=== PATIENT | female | born 1985 | race Hispanic/Latino ===

== ENCOUNTER 2018-11-10 06:15 | Inpatient (IN) | payer OTHER ==
[2018-11-10] MEDS ORDERED: LACTATED RINGERS 2,000 ML ONE (07:24)
[2018-11-10] MEDS ORDERED: PITOCin/NS 20 UNIT/1000ML DRIP 20,000 MILLIUNITS/1,000 ML BAG IV ONE (07:24)
[2018-11-10] MEDS ORDERED: PEPCID IV ONE ×2 (07:25→07:39)
[2018-11-10] MEDS ORDERED: ANCEF/STERILE WATER 2 GM/20 ML 2 GM/20 ML SYRINGE IV ONE (07:25)
[2018-11-10] MEDS ORDERED: REGLAN ONE (07:26)
[2018-11-10] MEDS ORDERED: BICITRA ONE (07:27)
[2018-11-10] MEDS ORDERED: REGLAN IV ONE (07:39)
[2018-11-10] MEDS ORDERED: BICITRA PO ONE ×2 (07:39→08:30)
[2018-11-10 07:57] LABS: Basophils % (Auto) 0.5 % (0.0-1.8); Eosinophils # (Auto) 0.1 K/mm3 (0.0-0.4); Eosinophils % (Auto) 1.1 % (0.0-4.3); Hematocrit 33.8 % (30.3-42.9); Hemoglobin 11.5 gm/dl (10.1-14.3); Lymphocytes # (Auto) 1.4 K/mm3 (1.2-5.4); Lymphocytes % (Auto) 15.8 % (13.4-35.0); Mean Corpuscular HGB Conc 34 % (30-34); Mean Corpuscular Volume 97 fl (79-97); Monocytes # (Auto) 0.5 K/mm3 (0.0-0.8); Monocytes % (Auto) 5.1 % (0.0-7.3); Red Blood Count 3.47 M/mm3 (3.65-5.03); Red Cell Distribution Width 14.2 % (13.2-15.2)
--- NOTE | 2018-11-10 07:58 | Anesthesia Consultation ---
Anesthesia Consult and Med Hx - Airway Anesthetic Teeth Evaluation: Poor, Chipped Mallampati Class: Class II Intubation Access Assessment: Probably Good - Pulmonary Exam CTA: Yes - Cardiac Exam Cardiac Exam: RRR - Pre-Operative Health Status ASA Pre-Surgery Classification: ASA2 Proposed Anesthetic Plan: Spinal - Pulmonary Hx Smoking: Yes (smoked day of surgery) Hx Asthma: No - Cardiovascular System Hx Hypertension: No - Central Nervous System Hx Seizures: Yes (post coming down after high- last 2016) Hx Psychiatric Problems: No - Endocrine Hx Renal Disease: No Hx Hypothyroidism: No Hx Hyperthyroidism: No - Hematic Hx Anemia: No Hx Sickle Cell Disease: No - Other Systems Hx Alcohol Use: No Hx Substance Use: Yes (H/0 substance abuse pt says she has been clean for over a year) Hx Obesity: Yes (BMI 39)
--- NOTE | 2018-11-10 07:59 | Anesthesia Day of Surgery ---
Anesthesia Day of Surgery - Day of Surgery Patient Examined: Yes Patient H&P Reviewed: Yes Patient is NPO: Yes Beta Blockers: No Gordon's Test: N/A
[2018-11-10] MEDS ORDERED: ANCEF/STERILE WATER 2 GM/20 ML 2 GM/20 ML SYRINGE IV NR (08:00)
[2018-11-10] MEDS ORDERED: PITOCin/NS 20 UNIT/1000ML DRIP 20 UNITS/1,000 ML BAG IV SCH ×3 (08:00→11:00)
[2018-11-10] MEDS ORDERED: LACTATED RINGERS 1,000 ML IV SCH ×2 (08:00→09:00)
--- NOTE | 2018-11-10 08:06 | History and Physical Report ---
History of Present Illness Date of examination: 11/10/18 Date of admission: 11/10/18 06:15 Chief complaint: scheduled repeat csec History of present illness: This is a 33 yo EDC 11/15/18 at 39+2 weeks here for scheduled repeat csec with hx of previous x2. 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 Hx of resolved placenta previa. HX of ascus and hpv+. Past History Past Medical History: other (hx of ptd) Past Surgical History: section [employer] History: abnormal PAP smear (ascus), herpes Family/Genetic History: cancer (breast), other (asthma, liver disorder) - Obstetrical History Expected Date of Delivery: 10/15/18 Actual Gestation: 43 Week(s) 5 Day(s) : 3 Para: 2 Hx # Term Pregnancies: 1 Number of Pregnancies: 1 Spontaneous Abortions: 0 Induced : 0 Number of Living Children: 2 Medications and Allergies Allergies Allergy/AdvReac Type Severity Reaction Status Date / Time No Known Allergies Allergy Unverified 11/10/18 07:38 Active Meds: Active Medications Cefazolin Sodium (Ancef/Sterile Water 2 Gm/20 Ml) 2 gm in 20 mls @ 80 mls/hr IV PREOP NR; Protocol Stop: 11/10/18 20:00 Oxytocin/Sodium Chloride (Pitocin/Ns 20 Unit/1000ml Drip) 20 units in 1,000 mls @ 0 mls/hr IV TITR CHAYO Lactated Ringer's (Lactated Ringers) 1,000 mls @ 2,250 mls/hr IV PREOP CHAYO Stop: 11/11/18 09:27 Review of Systems All systems: negative - Physical Exam Breasts: Positive: normal Cardiovascular: Regular rate, Normal S1 Lungs: Positive: Clear to auscultation, Normal air movement Abdomen: Positive: normal appearance, soft, normal bowel sounds. Negative: distention, tenderness, guarding Genitourinary (Female): Positive: normal external genitalia, normal perenium Vulva: both: normal Vagina: Positive: normal moisture Uterus: Positive: normal size, enlarged Adnexa: both: normal Anus/Rectum: Positive: normal perianal skin Extremities: Positive: normal Deep Tendon Reflex Grade: Normal +2 - Obstetrical FHR: category 1 Results Result Diagrams: 11/10/18 07:30 Abnormal lab results 11/10/18 Range/Units 07:30 RBC 3.47 L (3.65-5.03) M/mm3 MCH 33 H (28-32) pg Seg Neutrophils % 77.5 H (40.0-70.0) % All other labs normal. Assessment and Plan A/P IUP 39 + weeks here for repeat csec Previosu hx of csec x2 scheduled repeat discussed r/b/a of csec which include but not limited to bleedin, infection, damage to pelvic and non pelvic organs risk of hysterectomy, blood, clots, and pain. Patient verbalized acceptance and desires to proceed.
[2018-11-10] MEDS ORDERED: SUBLIMAZE ONE (08:10)
[2018-11-10 08:37] LABS: Platelet Count 225 K/mm3 (140-440)
[2018-11-10] MEDS ORDERED: NACL 0.9% 1000 ML 1,000 ML ONE (08:56)
[2018-11-10] MEDS ORDERED: PEPCID IV NR (09:00)
[2018-11-10] MEDS ORDERED: REGLAN IV NR (09:00)
[2018-11-10] MEDS ORDERED: WATER FOR IRRIG STERILE IR ONE (09:15)
[2018-11-10] MEDS ORDERED: NACL 0.9% IR ONE (09:15)
[2018-11-10] MEDS ORDERED: METHERGINE IM ONE (09:35)
[2018-11-10] MEDS ORDERED: ZOFRAN ONE (09:41)
[2018-11-10] MEDS ORDERED: BENADRYL ONE (10:01)
--- NOTE | 2018-11-10 10:14 | Post Anesthesia Evaluation ---
- Post Anesthesia Evaluation Patient Participated: Yes Airway Patent: Yes Stable Respiratory Function: Yes Nausea/Vomiting: No Temp > 96.8F: Yes Adequeate Hydration: Yes Anesthesia Complications: No Block Receding Appropriately: Yes Patient on Ventilator: No
--- NOTE | 2018-11-10 10:15 | Procedure Note ---
OB Delivery Note - Delivery Date of Delivery: 11/10/18 Surgeon: JEANNINE MUÑIZ Estimated blood loss: 1000cc - Section Preop diagnosis: repeat Postop diagnosis: same section procedure: section, repeat low transverse Disposition: PACU Complications: none Narrative: see op note - A at 1 minute: 9 at 5 minutes: 9 Infant Gender: Male (7 pounds 13 oz)
--- NOTE | 2018-11-10 10:25 | Operative Report ---
Operative Report Operative Report: Date: 11/10/18 PREOPERATIVE DIAGNOSES: 1. Intrauterine at 39 +2 weeks. 2. History of previous section x2. The patient desires a repeat section. POSTOPERATIVE DIAGNOSES: 1. Intrauterine at 39 weeks. 2. History of previous section x2. The patient desires a repeat section. PROCEDURE PERFORMED: Repeat section ANESTHESIA: Spinal. SURGEON: Dr. Annmarie Sainz MD ESTIMATED BLOOD LOSS: 1000 mL. COMPLICATIONS: None. FINDINGS: Male in cephalic presentation with anteflexed head, Apgars were 9 at 1 minute and 9 at 5 minutes, , and weight 7 pounds 13 ounces. Normal uterus, tubes, and ovaries were noted. INDICATIONS: The patient is a 33-year-old 3, para 2 female, who presented to repeat section at term. The patient has a history of 2 previous sections and she desires a repeat section, additionally she desires permanent fertilization. The procedure was described to the patient in detail including possible risks of bleeding, infection, injury to surrounding organs, and the possible need for further surgery and informed consent was obtained. PROCEDURE NOTE: The patient was taken to the operating room where spinal anesthesia was administered without difficulty. The patient was prepped and draped in the usual sterile fashion in the dorsal supine position with a leftward tilt. A Pfannenstiel skin incision was made with the scalpel and carried through to the underlying layer of fascia using the Bovie. The fascia was incised in the midline and extended laterally using Ng scissors. Christiano clamps were used to elevate the superior aspect of the fascial incision, which was elevated, and the underlying rectus muscles were dissected off bluntly and using Ng scissors. Attention was then turned to the inferior aspect of the fascial incision, which in similar fashion was grasped with Christiano clamps, elevated, and the underlying rectus muscles were dissected off bluntly and using the Bovie. The rectus muscles were dissected in the midline. The peritoneum was identified and entered using Metzenbaum scissors; this incision was extended superiorly and inferiorly with good visualization of the bladder. The bladder blade was inserted. The vesicouterine peritoneum was identified and entered sharply using Metzenbaum scissors. This incision was extended laterally and the bladder flap was created digitally. The bladder blade was reinserted. The lower uterine segment was incised in a transverse fashion using the scalpel and extended using bandage scissors as well as manual traction. Clear fluid was noted. The infant was subsequently delivered using a Regi vacuum due to anteflexed head and difficulty in delivering the infant's head without the Regi. The nose and mouth were bulb suctioned. The cord was clamped and cut. The infant was subsequently handed to the awaiting nursery nurse. The placenta was delivered spontaneously intact with a three-vessel cord noted. The uterus was exteriorized and cleared of all clots and debris. The uterine incision was repaired in 2 layers using 0 chromic sutures. Hemostasis was visualized., surgicell, tissel used for excellent hemostasis.. The uterus was returned to the abdomen, . The uterine incision was reexamined and it was noted to be hemostatic. The pelvis was copiously irrigated. The rectus muscles were reapproximated in the midline using 3-0 Vicryl. The fascia was closed with 0 Vicryl suture, the subcutaneous layer was closed with 3-0 plain gut, and the skin was closed with Yoan needle. . Sponge, lap, and instrument counts were correct x2. The patient was stable at the completion of the procedure and was subsequently transferred to the recovery room in stable condition.
[2018-11-10] MEDS ORDERED: D5LR 1,000 ML IV SCH (11:00)
[2018-11-10] MEDS ORDERED: NARCAN 0.4 MG/1 ML IV PRN (11:00)
[2018-11-10] MEDS ORDERED: MORPHINE IV PRN ×2 (11:00)
[2018-11-10] MEDS ORDERED: SODIUM CHLORIDE FLUSH SYRINGE 10 ML IV PRN (11:00)
[2018-11-10] MEDS ORDERED: MORPHINE ONE (11:12)
[2018-11-10] MEDS ORDERED: NORCO 5/325 PO PRN (11:30)
[2018-11-10] MEDS ORDERED: TYLENOL PO PRN (11:30)
[2018-11-10] MEDS ORDERED: PHENERGAN PR PRN (11:30)
[2018-11-10] MEDS ORDERED: TUCKS PAD TP PRN (11:30)
[2018-11-10] MEDS ORDERED: MYLICON PO PRN (11:30)
[2018-11-10] MEDS ORDERED: TORADOL IV PRN (11:30)
[2018-11-10] MEDS ORDERED: LANSINOH TP PRN (11:30)
[2018-11-10] MEDS ORDERED: ANUCORT-HC PR PRN (12:00)
[2018-11-10] MEDS: FEOSOL PO SCH (13:03)
[2018-11-10] MEDS: DILAUDID IV PRN ×2 (13:38→17:24)
[2018-11-10] MEDS ORDERED: SENOKOT PO PRN (22:00)
[2018-11-10 23:05] LABS: Hematocrit 32.5 % (30.3-42.9); Hemoglobin 10.9 gm/dl (10.1-14.3)
[2018-11-11] MEDS: IBUPROFEN PO PRN ×5 (00:04→23:43)
[2018-11-11] MEDS: PERCOCET 5/325 PO PRN ×4 (00:04→23:30)
[2018-11-11 04:35] LABS: Amphetamine Screen,Urine PRESUMPTIVE NEGATIVE; Benzodiazepines Screen,Urine PRESUMPTIVE NEGATIVE; Cannabinoid Screen,Urine PRESUMPTIVE NEGATIVE; Cocaine Screen,Urine PRESUMPTIVE NEGATIVE; Methadone Screen,Urine PRESUMPTIVE NEGATIVE; Opiate Screen,Urine PRESUMPTIVE NEGATIVE
[2018-11-11] MEDS ORDERED: BOOSTRIX IM ONE (06:00)
--- NOTE | 2018-11-11 08:39 | Progress Note ---
Assessment and Plan A: Post op day 1 Vital signs and labs are stable Passing flatus P: Plan for discharge tomorrow evening or on POD3 Continue current pain management regimen Subjective - Subjective Date of service: 11/11/18 Principal diagnosis: Post op day 1 Patient reports: appetite normal, voiding normally, pain well controlled, flatus, ambulating normally : doing well (Pt is only taking Percocet and Motrin now, did not receive additional dose of Dilaudid.) Objective - Vital Signs Latest vital signs: Vital Signs Temp Pulse Resp BP BP Pulse Ox 11/11/18 05:30 18 11/11/18 05:29 18 11/11/18 00:04 18 11/10/18 20:34 97.6 F 18 103/59 11/10/18 16:23 97.8 F 69 18 118/66 11/10/18 11:15 98 F 68 15 101/62 99 11/10/18 11:00 53 L 15 101/53 97 11/10/18 10:45 51 L 14 97/58 97 11/10/18 10:30 53 L 15 97/58 96 11/10/18 10:25 53 L 15 97/53 97 11/10/18 10:20 56 L 14 100/50 97 11/10/18 10:15 97.6 F 53 L 15 95/74 98 11/10/18 10:10 97.6 F 57 L 15 95/35 98 Intake and Output 11/10/18 11/11/18 11/11/18 23:59 07:59 15:59 Intake Total 480 300 Output Total 1700 800 Balance -1220 -500 Intake: Oral 480 Intake, Free Water 300 Output: Urine 1700 800 Indwelling Catheter 900 Void 800 800 Other: Total, Intake Amount 480 Total, Output Amount 900 800 # Voids Void 1 1 - Exam Breasts: Present: normal Cardiovascular: Present: Regular rate, Normal S1, Normal S2, No murmurs Lungs: Present: Clear to auscultation Abdomen: Present: normal appearance, soft, tenderness, normal bowel sounds Uterus: Present: normal, firm, fundal height at umbilicus Extremities: Present: normal Incision: Present: normal, dry, intact
[2018-11-11] MEDS: FEOSOL PO SCH (09:51)
[2018-11-11] MEDS: PRENATAL VITAMIN PO SCH (09:51)
[2018-11-11] MEDS ORDERED: M-M-R II VACCINE SUB-Q ONE (11:00)
[2018-11-11] MEDS: MILK OF MAGNESIA PO PRN (17:23)
[2018-11-12] MEDS: IBUPROFEN PO PRN ×3 (06:41→23:13)
[2018-11-12] MEDS: PERCOCET 5/325 PO PRN ×4 (06:42→23:12)
[2018-11-12] MEDS: DILAUDID IV PRN ×3 (07:35→20:23)
--- NOTE | 2018-11-12 08:41 | Progress Note ---
Assessment and Plan A: POD#2 s/p repeat section Suboptimal pain control Obesity P: Change pain medication regimen. Abdominal binder Monitor clinically. Subjective - Subjective Date of service: 11/12/18 Principal diagnosis: s/p repeat section Interval history: Pt is tearful during interview because of pain. She reports receiving [place] overnight which did not help her. She is passing flatus but has not had a bowel movement. Voiding without difficulty. Patient reports: appetite normal, voiding normally, flatus, pain poorly controlled, ambulating normally, no dizzy ambulation, no bowel movement [place]: doing well Objective - Vital Signs Latest vital signs: Vital Signs Temp Pulse Resp BP BP Pulse Ox 11/12/18 06:42 18 11/12/18 06:41 18 11/12/18 00:00 98.7 F 79 18 118/79 11/11/18 23:43 18 11/11/18 23:30 18 11/11/18 16:09 98.0 F 68 20 123/62 97 Intake and Output 11/11/18 11/12/18 11/12/18 22:59 06:59 14:59 Intake Total 240 300 Balance 240 300 Intake: Oral 240 Intake, Free Water 300 Other: Total, Intake Amount 240 # Voids Void 1 - Exam Breasts: Present: deferred Cardiovascular: Present: Regular rate Lungs: Present: Clear to auscultation Abdomen: Present: soft (obese ), tenderness, normal bowel sounds. Absent: guarding Uterus: Present: fundal height at umbilicus Extremities: Present: edema (trace) Incision: Present: dressed
[2018-11-12] MEDS: PRENATAL VITAMIN PO SCH (09:55)
[2018-11-12] MEDS ORDERED: PERCOCET 5/325 PO PRN (10:00)
[2018-11-12] MEDS: MILK OF MAGNESIA PO PRN (23:13)
[2018-11-13] MEDS: DILAUDID IV PRN ×2 (01:44→11:23)
[2018-11-13] MEDS: IBUPROFEN PO PRN (06:16)
[2018-11-13] MEDS: PERCOCET 5/325 PO PRN (06:16)
--- NOTE | 2018-11-13 08:15 | Progress Note ---
Assessment and Plan - Patient Problems (1) Previous delivery, delivered Current Visit: Yes Status: Acute Plan to address problem: routine postop discharge home Subjective - Subjective Date of service: 11/13/18 Principal diagnosis: s/p repeat section Interval history: Patient admitted for repeat delivery. See op note. Postop complicated by poor pain control Patient reports: appetite normal, voiding normally, pain well controlled [place]: doing well Objective - Vital Signs Latest vital signs: Vital Signs Temp Pulse Resp BP Pulse Ox 11/12/18 16:41 97.9 F 73 20 110/64 97 Intake and Output 11/12/18 11/13/18 11/13/18 22:59 06:59 14:59 Intake Total 300 Balance 300 Intake: Intake, Free Water 300 - Exam Cardiovascular: Present: Regular rate Lungs: Present: Clear to auscultation Abdomen: Present: normal appearance Incision: Present: normal
--- NOTE | 2018-11-13 08:16 | Discharge Summary ---
Providers - Providers Date of Admission: 11/10/18 06:15 Date of discharge: 11/13/18 Attending physician: RUDY ODEN 11/11/18 05:01 Consult to Case Management [CONS] Routine Services Needed at Discharge: [employer] Notified:: [id number] Additional Physician Instructions: hx of drug use; erratic behavior regarding IV drugs; no custody of other kids?? per previous RN. Primary care physician: RUDY ODEN Hospitalization Reason for admission: section Delivery: Procedure: section, repeat low transverse Discharge diagnosis: IUP at term delivered Hospital course: Patient admitted for repeat delivery. See op note. Postop complicated by poor pain controlled that improved. Condition at discharge: Good Disposition: DC-01 TO HOME OR SELFCARE - Discharge Diagnoses (1) Previous delivery, delivered Status: Acute Plan - Discharge Medications Prescriptions: Ferrous Sulfate [Feosol 325 MG tab] 325 mg PO TID #30 tablet Ibuprofen [Motrin] 600 mg PO Q8H PRN #30 tablet PRN Reason: Pain oxyCODONE /ACETAMINOPHEN [Percocet 5/325] 1 tab PO Q6HR PRN #30 tablet PRN Reason: Pain - Provider Discharge Summary Activity: no sex for 6 weeks, no heavy lifting 4 weeks, no strenuous exercise Diet: routine Instructions: routine Additional instructions: [] Smoking cessation referral if applicable(refer to patient education folder for contact #) [] Refer to [employer] Booklet Call your doctor immediately for: * Fever > 100.5 * Heavy vaginal bleeding ( >1 pad per hour) * Severe persistent headache * Shortness of breath * Reddened, hot, painful area to leg or breast * Drainage or odor from incision. * Keep incision clean and dry at all times and follow doctor's instructions regarding bathing/showering schedule followup in 2 weeks - Follow up plan
[2018-11-13] MEDS: PRENATAL VITAMIN PO SCH (10:16)
[2018-11-13] MEDS: FEOSOL PO SCH (10:16)
[2018-11-13 12:33] VITALS: BP 109/66
== END 2018-11-13 13:30 | disposition home or self-care (01) | DRG 766 ==
LOC: APU 06:15 → OB 10:37
PROVIDERS: ADMIT Obstetrics & Gynecology; ATTEND Obstetrics & Gynecology
PROC: 10D00Z1 Extraction of Products of Conception, Low, Open Approach (ICD-10-PCS; principal; 2018-11-10)
PROC: 3E0234Z Introduction of Serum, Toxoid and Vaccine into Muscle, Percutaneous Approach (ICD-10-PCS; 2018-11-11)
DX: O34.211 Maternal care for low transverse scar from previous cesarean delivery (principal); O99.214 Obesity complicating childbirth; O99.334 Smoking (tobacco) complicating childbirth; E66.9 Obesity, unspecified; F17.200 Nicotine dependence, unspecified, uncomplicated; Z3A.39 39 weeks gestation of pregnancy; Z37.0 Single live birth; Z23 Encounter for immunization; Z80.3 Family history of malignant neoplasm of breast; Z83.79 Family history of other diseases of the digestive system; Z82.5 Family history of asthma and other chronic lower respiratory diseases
CPT/HCPCS: 36415; 80307; 85014; 85018; 85025; 86850; 86900; 86901; G0378; J0690; J1170; J1200; J1885; J2210; J2270; J2405; J2590; J2765; J3010; J7030; J7120; J7121